=== PATIENT | male | born 1955 | race African-American/Black ===

== ENCOUNTER 2020-07-20 18:41 | Emergency (ER) | payer OTHER ==
[~2020-07-20] VITALS: Ht 175.3 cm; Wt 88.5 kg
[~2020-07-20 18:41] MED LIST: ACETAMINOPHEN650 M5 PO; ALBUTEROL2.5 MG/31; ALDACTONE25 MG PO; AUGMENTIN 875875 MG PO; AVELOX 400 MG400 MG PO; CIPROFLOXACIN500 M3 PO; DIFLUCAN PO; DILTIAZEM 24HR180 M2 PO; DILTIAZEM 24HR180 MG; DOXYCYCLINE 10100 M1 PO; FENOGLIDE40 MG PO; FLEXERIL PO; FLOMAX0.4 MG PO; GLIPIZIDE ER2.5 MG; GLUCOPHAGE500 MG PO; GLUCOTROL5 MG; GLUCOTROL5 MG PO; IRON325; IRON325 PO; LEVEMIR100 UNIT/1 SUBQ; LISINOPRIL10 MG PO; METFORMIN HCL500 MG PO; MIRALAX255 GM PO; NEURONTIN600 MG PO; NORCO 5-325 TA1 EACH PO; OXYBUTYNIN 5 MG5 M2 PO; PRAVACHOL40 MG PO; PREDNISONE 10 M10 MG PO; RANITIDINE; RANITIDINE 150150 M1 PO; ROBAXIN500 MG PO; TAMSULOSIN HCL0.4 M1; TRAMADOL; TRAZODONE 150150 M1 PO; ULTRACET TABLE1 EACH PO; ULTRAM 50MG TAB50 MG; ZANTAC 150MG T150 M1 PO
[2020-07-20 19:18] LABS: ABSOLUTE BASOPHILS 0.1 thou/uL (0.0-0.2); ABSOLUTE EOSINOPHILS 0.1 thou/uL (0.0-0.7); ABSOLUTE LYMPHOCYTES 0.8 thou/uL (0.8-5.3); ABSOLUTE MONOCYTES 0.7 thou/uL (0.0-1.2); ABSOLUTE NEUTROPHILS 6.7 thou/uL (1.6-8.1); BASOPHILS 1.1 %; EOSINOPHILS 1.4 %; HEMATOCRIT 29.9 % (42.0-52.0); HEMOGLOBIN 9.2 gm/dL (14.0-18.0); LYMPHOCYTES 9.6 %; MCHC 30.8 g/dL (28.0-37.0); MCV 74.9 fL (80.0-100.0); MONOCYTES 8.8 %; MPV 7.2 fl. (7.2-11.1); NUCLEATED RBCS 0 /100WBC; PLATELET COUNT* 563 thou/uL (150-400); POLYS 79.1 %; RBC 3.99 mil/uL (4.50-6.00); RDW-CV 21.9 % (10.5-14.5); WBC 8.5 thou/uL (4.0-11.0)
[2020-07-20 19:27] LABS: CALCIUM 8.5 mg/dL (8.5-10.1); CREATININE 0.9 mg/dL (0.6-1.3); POTASSIUM 3.7 mmol/L (3.5-5.1)
[2020-07-20 19:28] LABS: APTT 27.2 Seconds (25.0-31.3); PROTIME 10.6 Seconds (9.20-11.50)
[2020-07-20 19:37] LABS: ALBUMIN 2.9 g/dL (3.4-5.0); TOTAL BILIRUBIN 0.2 mg/dL (<0.1-1.0); TOTAL PROTEIN 7.6 g/dL (6.4-8.2)
[2020-07-20 21:12] LABS: URINE BILIRUBIN NEGATIVE (Negative); URINE BLOOD NEGATIVE (Negative); URINE CLARITY SL CLOUDY; URINE COLOR YELLOW; URINE GLUCOSE-RANDOM NEGATIVE (Negative); URINE KETONES NEGATIVE (Negative); URINE LEUKOCYTES-REFLEX 3+ (Negative); URINE NITRITE-REFLEX NEGATIVE (Negative); URINE PROTEIN NEGATIVE (Negative); URINE SPECIFIC GRAVITY 1.025 (1.005-1.030)
[2020-07-20 21:19] LABS: HYALINE CASTS 4-10 Moderate /LPF (None Seen); SQUAMOUS 4-10 Moderate /LPF (0-3)
[2020-07-20 21:20] LABS: MUCUS None Seen strn/LPF (None Seen); URINE WBC-REFLEX 6-15 Few /HPF (0-5)
[2020-07-20 21:22] LABS: CRYSTALS None Seen /LPF (None Seen)
[2020-07-20 21:23] LABS: URINE RBC None Seen /HPF (0-2)
[2020-07-20 21:30] VITALS: BP 138/72
--- NOTE | 2020-07-21 09:40 | EKG ---
[place] [address] ELECTROCARDIOGRAM REPORT Name: TREVOR VOGT Room: [facility] ([place], [place])#: [id number] Admission: 07/20/20 Attend Phys: Discharge: 07/20/20 Date of : 51 Date of Service: 07/20/201916 Report #: [id number] THIS REPORT FOR: //name// [facility] ED Test Date: 2020-07-20 Test Time: 19:17:12 Pat Name: TREVOR VOGT Department: Room: Gender: Hand Lacer: [facility] : 1955 Requested By: Blayne Tolbert Order Number: [id number] MD: Richard De La Fuente Measurements Intervals [place] Rate: 100 P: -83 NE: 204 QRS: -28 QRSD: 100 T: 47 QT: 390 QTc: 503 Interpretive Statements Sinus or ectopic atrial tachycardia Borderline left axis deviation Prolonged QT interval Compared to ECG 07/06/2013 18:12:43 Prolonged QT interval now present Electronically Signed On 07-21-2020 9:40:09 CDT by Richard De La Fuente [email or web address] <ELECTRONICALLY SIGNED> By: Richard De La Fuente MD, FACC 07/21/20 0940 16 16 Richard De La Fuente MD, [facility] /EPI
== END 2020-07-20 21:30 | disposition home or self-care (01) ==
LOC: M.ERS 18:41
PROVIDERS: Emergency Medicine Emergency Medical Services
DX: S91.112A Laceration without foreign body of left great toe without damage to nail, initial encounter (principal); R42 Dizziness and giddiness; E11.9 Type 2 diabetes mellitus without complications; F17.210 Nicotine dependence, cigarettes, uncomplicated; Z88.1 Allergy status to other antibiotic agents; Z79.4 Long term (current) use of insulin; W18.39XA Other fall on same level, initial encounter; Y93.89 Activity, other specified; Y92.89 Other specified places as the place of occurrence of the external cause; Y99.8 Other external cause status